=== PATIENT | male | born 1945 | race Caucasian/White ===

== ENCOUNTER → 2017-05-30 | Outpatient (CLI) | payer MEDICARE, OTHER ==
[~2017-05-30] MED LIST: AMLO10TA2 PO; ATEN25TA PO; IRBE300T11 PO; OMEP40CA2 PO; SIMV20TA PO
[2017-05-30 10:10] LABS: AUTOMATED NEUTROPHIL # 6.1 TH/MM3 (1.8-7.7); BASOPHIL # 0.1 TH/MM3 (0-0.2); BASOPHIL % 0.8 % (0.0-2.0); EOSINOPHIL # 0.1 TH/MM3 (0-0.4); EOSINOPHIL % 1.1 % (0.0-4.0); HEMATOCRIT 45.6 % (39.0-51.0); HEMOGLOBIN 15.7 GM/DL (13.0-17.0); LYMPH % 25.4 % (9.0-44.0); LYMPHOCYTE # 2.4 TH/MM3 (1.0-4.8); MEAN CELL VOLUME 88.7 FL (80.0-100.0); MEAN CORPUSCULAR HEMOGLOBIN 30.5 PG (27.0-34.0); MEAN CORPUSCULAR HGB CONC 34.4 % (32.0-36.0); MONO % 7.4 % (0.0-8.0); MONOCYTE # 0.7 TH/MM3 (0-0.9); NEUT % 65.3 % (16.0-70.0); PLATELET COUNT 248 TH/MM3 (150-450); RED BLOOD COUNT 5.14 MIL/MM3 (4.50-5.90); RED CELL DISTRIBUTION WIDTH 14.5 % (11.6-17.2); WHITE BLOOD COUNT 9.3 TH/MM3 (4.0-11.0)
[2017-05-30 10:23] LABS: PROTHROMBIN TIME - PATIENT 10.5 SEC (9.8-11.6)
[2017-05-30 10:24] LABS: BILIRUBIN, URINE NEG (NEG); BLOOD, URINE NEG (NEG); GLUCOSE,URINE NEG (NEG); KETONE, URINE NEG (NEG); MUCUS URINE FEW /lpf (OCC); NITRITE,URINE NEG (NEG); PH, URINE 5.5 (5.0-8.5); URINE COLOR YELLOW (YELLW/STRAW); URINE LEUKOCYTE ESTERASE NEG (NEG)
[2017-05-30 10:50] LABS: BICARBONATE 30.6 MEQ/L (21.0-32.0); CALCIUM 9.3 MG/DL (8.5-10.1)
--- NOTE | 2017-05-30 11:46 | RADRPT ---
EXAM DATE/TIME: 05/30/2017 11:31 [facility] COMPARISON: No previous studies available for comparison. INDICATIONS : Evaluate for pneumonia, pneumothorax and communicable diseases. Pre-op Hip surgery MEDICAL HISTORY : Hypertension. SURGICAL HISTORY : None. ENCOUNTER: Initial ACUITY: 1 day PAIN SCORE: 0/10 LOCATION: chest FINDINGS: Calcified granuloma in the left upper lobe. No significant focal pleural or parenchymal opacities. Ca rdiomediastinal contours are within normal limits. Bony thorax is intact. CONCLUSION: 1. Left upper lobe granuloma. 2. No acute cardiopulmonary disease. Roman Banks MD on May 30, 2017 at 11:43 Board Certified Radiologist. This report was verified electronically.
--- NOTE | 2017-05-30 14:03 | EKG ---
Date Performed: 05/30/2017 Time Performed: 10:01:48 PTAGE: 72 years EKG: Sinus rhythm with 1st degree A-V block. Left axis deviation Abnormal ECG NO PREVIOUS TRACING DOCTOR: Sudeep Isabel Interpretating Date/Time 05/30/2017 14:02:34
== END ==
LOC: CPRE 09:25
PROVIDERS: ATTEND Orthopaedic Surgery Orthopaedic Trauma
DX: Z01.810 Encounter for preprocedural cardiovascular examination (principal); Z01.811 Encounter for preprocedural respiratory examination; Z01.812 Encounter for preprocedural laboratory examination; M79.609 Pain in unspecified limb; R94.31 Abnormal electrocardiogram [ECG] [EKG]; Z96.60 Presence of unspecified orthopedic joint implant; Z79.01 Long term (current) use of anticoagulants
CPT/HCPCS: 36415; 71020; 80048; 81001; 85025; 85610; 85730; 93005

== ENCOUNTER 2017-06-17 09:00 | Inpatient (IN) | payer MEDICARE, OTHER ==
[~2017-06-17] VITALS: Ht 182.9 cm; Wt 123.4 kg
[2017-06-26] MEDS ORDERED: BUPIVACAINE LIPOSO PF 1.3% INJ 20 ML, BUPIVACAINE-EPI PF 0.25% INJ 20 ML in SODIUM CHLO... P-ARTICULR SCH (05:45)
[2017-06-26] MEDS ORDERED: DEXAMETHASONE SOD PHOS 20 MG/5 ML VIAL IV PUSH SCH (05:45)
[2017-06-26] MEDS ORDERED: CELECOXIB 200 MG CAP PO SCH (05:45)
[2017-06-26] MEDS ORDERED: VANCOMYCIN 1000 MG/NS 250 ML (for <70 kg) IV SCH ×2 (05:45)
[2017-06-26] MEDS ORDERED: CHLORHEXIDINE GLUCONATE 2 % 1 PACK (2 CLOTHS) TOPICAL PRN (05:45)
[2017-06-26] MEDS ORDERED: SODIUM CHLORID 0.9% 500 ML IV PRN (05:45)
[2017-06-26] MEDS ORDERED: METOPROLOL TARTRATE 25 MG TAB PO PRN (05:45)
[2017-06-26] MEDS ORDERED: LACTATED RINGER'S 1000 ML IV PRN (05:45)
[2017-06-26] MEDS ORDERED: CHLORHEXIDINE GLUCONATE 4% SOLN 120 ML BTL TOPICAL SCH (05:45)
[2017-06-26] MEDS ORDERED: POVIDONE IODINE 5% (ANTISEPSIS KIT) 4 APPLICATIONS EACH NARE PRN (05:45)
[2017-06-26] MEDS ORDERED: GENTAMICIN SULFATE 80 MG/2 ML VIAL ONE (06:17)
[2017-06-26] MEDS ORDERED: MIDAZOLAM HCL 2 MG/2 ML VIAL ONE (06:23)
[2017-06-26] MEDS ORDERED: ACETAMINOPHEN 1000 MG/100 ML 100 ML IV ONE (06:23)
[2017-06-26] MEDS ORDERED: FAMOTIDINE 20 MG/2 ML VIAL ONE (06:23)
[2017-06-26] MEDS ORDERED: ceFAZolin 2 GM PREMIX 50 ML ONE (06:32)
[2017-06-26] MEDS: SODIUM CHLORIDE 0.9% IV SCH ×3 (07:02→08:29)
[2017-06-26] MEDS: TRANEXAMIC ACID IV SCH ×3 (07:02→08:29)
[2017-06-26] MEDS ORDERED: HYDR-3583 PO (07:37)
[2017-06-26] MEDS ORDERED: ASPI1CHW4 CHEW (07:37)
--- NOTE | 2017-06-26 08:44 | PD.OP ---
cc: Jori Alcocer MD Operative Report Date of Surgery: Jun 26, 2017 Preoperative Diagnosis: Right hip osteoarthritis Postoperative Diagnosis: Procedure: Right total hip arthroplasty via anterior approach Anesthesia: Gen. Surgeon: Jori Alcocer Emergency Technician(s): NATASHA Cartwright PA-C The surgical procedure was assisted by my physician front desk assistant. My P.A. presence was necessary throughout this case for the manipulation and positioning of the surgical extremity. My P.A. was assisting me throughout the duration of this procedure. The skill set of a physician front desk assistant was medically necessary to complete this procedure. During the surgical case the surgical instruments inspector was working at the back table and the physician front desk assistant was directly assisting me. Operation and Findings: PLAN OF ACTIVITY Weight bear as tolerated. DRAINS: 7-mm SANTI drain. IMPLANTS USED DePuy Corail size [16 high offset stem with a size [56] [place] Gription cup, [ 56/36] Altrx poly liner, and a +1 standard head. DETAILS OF PROCEDURE: This patient has a long history of hip pain. Patient was found to have severe osteoarthritis. The patient had radiographic evidence of joint space narrowing with [id number] arthritis and osteophytes around the acetabulum as well as the femoral head. There was also some cystic changes. The patient failed conservative treatment with pain medications, anti-inflammatories, physical therapy, assistive devices including a cane, as well as therapeutic injection of the hip. Patient's hip arthritis was limiting his ability to ambulate and perform activities of daily living. The patient wished to proceed with surgery and informed consent was obtained. Operative site was marked. I discussed both posterior approach and anterior approach with the patient and decision was made for anterior approach. Patient was brought to OR and placed on OR table. IV sedation and general anesthesia was administered by anesthesiologist. Patient positioned on a Mary table and was given IV antibiotics. Time-out procedure was performed. The hip and thigh were prepped with alcohol followed by Hibiclens. The thigh was draped in the usual sterile fashion. Clean Air Suite was used for this procedure. The procedure began with a 5-inch incision over the anterolateral thigh. Subcutaneous tissue was dissected with Bovie. The fascia over the tensa fasciae latae was incised. Care was taken to avoid injury to the lateral femoral cutaneous nerve. The tensor muscle was retracted laterally. Sartorius was retracted medially. Retractors were now placed. The reflected head of the rectus is now elevated. A capsulotomy was performed over the anterior head capsule. Sutures were placed to help retract the capsule. At this point the femoral head and neck were identified. With soft tissue protected, oscillating saw was used to make a cut through the femoral neck, the femoral head was now removed. At this point attention was turned to preparation of the acetabulum. The labrum was excised. The acetabulum was sequentially reamed up to size [56]. A [place] cup was now placed. Fluoroscopy was used to aid in identification of appropriate version. Cup was fully impacted and found to have excellent fit. Hole eliminator was now placed. The liner was now impacted into the cup. At this point the hip was externally rotated. A hook was placed around the proximal femur. The capsule was released off the lateral and medial femur. The hip was now extended and adducted. Retractors were placed around the proximal femur to allow for exposure. A box osteotome was used to remove the lateral cortex of the femoral neck. A broach was used to help lateralize the prosthesis. Canal finder was used to create a path down the canal. Next, the canal was sequentially broached up to size [16]. This was found to be an excellent fit. Calcar planer was placed. A standard head was placed, and the hip was reduced. The hip was found to have excellent stability with good range of motion. The leg lengths were measured under fluoroscopy and found to be equal compared to preoperatively. Trial broach was removed. The Corail stem was opened. Stem was fully impacted into the proximal femur in appropriate version. The femoral head was placed. The hip was again reduced. Fluoroscopy confirmed excellent alignment of prosthesis. The wound was thoroughly irrigated and capsule was closed with #1 Vicryl. The fascia over the tensor fasciae muscle was closed with #1 Vicryl, subcutaneous tissue was closed with 3-0 Vicryl and the skin was closed with vivian and Dermabond skin closure. The capsule layers, muscle, and subcutaneous tissue were injected with a mixture of saline and bupivicaine. Dressings were applied. The patient was transferred to Recovery Room in stable condition. Jori Alcocer MD Jun 26, 2017 08:44
[2017-06-26] MEDS ORDERED: ONDANSETRON HCL 4 MG/2 ML VIAL IVP PRN (08:45)
[2017-06-26] MEDS ORDERED: ACETAMINOPHEN/HYDROcodone 325 MG/5 MG TAB PO PRN (08:45)
[2017-06-26] MEDS ORDERED: ACETAMINOPHEN/HYDROcodone 325 MG/7.5 MG TAB PO PRN (08:45)
[2017-06-26] MEDS ORDERED: NALOXONE HCL 0.4 MG/ML AMP IV PUSH PRN (08:45)
[2017-06-26] MEDS ORDERED: Post-op Orders (for Pharmacy) XX ONE (08:45)
[2017-06-26] MEDS ORDERED: ACETAMINOPHEN/HYDROcodone 325 MG/10 MG TAB PO PRN (08:45)
[2017-06-26] MEDS ORDERED: DO NOT ADM ANY ANTICOAGULANT DRUGS PRN (09:07)
--- NOTE | 2017-06-26 09:43 | HHI.FF ---
Face to Face Verification Diagnosis: (1) Status post right hip replacement Physical Therapy Gait training, Safety evaluation Hip: Total hip, Protocol: Right, Progress to weight bearing Right LE Weight Bearing: WB as tolerated Nursing Additional Instructions Maintain dressing unless soiled or coming loose until 07/02/17, then remove carefully leaving Dermabond tape intact over incision. Then dress with primapore only with changes every other day. I have seen patient Frantz Gotti on 06/26/17. My clinical findings support the need for the requested home health care services because: Limited ability to care for self I certify that my clinical findings support that this patient is homebound because: Post-op weakness Colt Chung Jr. Jun 26, 2017 09:43
[2017-06-26] MEDS: LACTATED RINGER'S 1000 ML INJ 1,000 ML IV SCH (09:45)
[2017-06-26] MEDS ORDERED: *morphine SULFATE 8 MG/ML PERIprocedure ONLY ONE ×3 (09:48→10:49)
--- NOTE | 2017-06-26 10:12 | RADRPT ---
EXAM DATE/TIME: 06/26/2017 09:23 [facility] COMPARISON: No previous studies available for comparison. INDICATIONS : Post hardware placement MEDICAL HISTORY : None. SURGICAL HISTORY : None. ENCOUNTER: Initial ACUITY: 1 day PAIN SCORE: 0/10 LOCATION: Right Hip FINDINGS: Right hip arthroplasty in place. The arthroplasty components are in anatomic alignment. No significan t acute bony fracture. Immediate postoperative soft tissue changes. CONCLUSION: 1. Right hip arthroplasty in anatomic alignment without acute fracture. Roman Banks MD on June 26, 2017 at 10:02 Board Certified Radiologist. This report was verified electronically.
[2017-06-26] MEDS ORDERED: KETOROLAC TROMETHAMINE 30 MG/ML (IVP) VIAL IV PUSH SCH (11:00)
[2017-06-26] MEDS ORDERED: TRANEXAMIC ACID INJ 1,000 MG in SODIUM CHLORIDE 0.9% INJ 100 ML IV ONE (11:00)
[2017-06-26] MEDS: ASPIRIN 81 MG CHEW TAB CHEW SCH ×2 (11:40→20:33)
[2017-06-26 12:00] VITALS: BP 107/67; PULSE 62; RESP 18; TEMP 96.2; O2SAT 95
[2017-06-26] MEDS ORDERED: PHENYLEPH/NS 1000 MCG/10 ML SYR IV ONE (12:00)
[2017-06-26] MEDS ORDERED: ONDANSETRON HCL 4 MG/2 ML VIAL IV ONE (12:00)
[2017-06-26] MEDS ORDERED: ePHEDrine/NS 25 MG/5 ML SYRINGE IV ONE (12:00)
[2017-06-26] MEDS ORDERED: LIDOCAINE HCL 1% PF 5 ML SYRINGE OTHER ONE (12:00)
[2017-06-26] MEDS ORDERED: GLYCOPYRROLATE 1 MG/5 ML SYRINGE IV PUSH ONE (12:00)
[2017-06-26] MEDS ORDERED: ROCURONIUM INJ 50 MG/5 ML SYRINGE IV PUSH ONE (12:00)
[2017-06-26] MEDS ORDERED: NEOSTIGMINE 5 MG/5 ML SYRINGE IV PUSH ONE (12:00)
[2017-06-26] MEDS ORDERED: LACTATED RINGER'S 1000 ML INJ 1,000 ML IV ONE (12:00)
[2017-06-26] MEDS ORDERED: PROPOFOL 200 MG/20 ML AMP IV ONE (12:00)
[2017-06-26] MEDS: ceFAZolin 2 GM PREMIX 50 ML IV SCH ×2 (14:03→19:16)
[2017-06-26 16:00] VITALS: BP 104/67; PULSE 55; RESP 18; TEMP 96.4; O2SAT 96
--- NOTE | 2017-06-26 16:12 | RADRPT ---
EXAM DATE/TIME: 06/26/2017 07:15 [facility] COMPARISON: No previous studies available for comparison. INDICATIONS : Right total hip arthroplasty. MEDICAL HISTORY : None. SURGICAL HISTORY : None. ENCOUNTER: Initial ACUITY: 1 day PAIN SCORE: Non-responsive. LOCATION: Right hip FINDINGS: 3 magnified C-arm spot views are centered over the hip joint and labeled right. A total prosthesis is observed. This is in good position. No gross fracture on this style acquisition. CONCLUSION: Limited images as detailed above. Jamal Fall Jr., MD on June 26, 2017 at 16:10 Board Certified Radiologist. This report was verified electronically.
[2017-06-26] MEDS: ACETAMINOPHEN 1000 MG/100 ML 100 ML IV SCH (17:04)
[2017-06-26] MEDS: VANCOMYCIN INJ 1,000 MG in SODIUM CHLOR 0.9% 250 ML INJ 250 ML IV SCH (17:56)
[2017-06-26 20:10] VITALS: BP 138/76; PULSE 59; RESP 16; TEMP 96.2; O2SAT 97
[2017-06-26] MEDS: CELECOXIB 200 MG CAP PO SCH (20:32)
[2017-06-26] MEDS: MORPHINE SULFATE 4 MG/ML INJ IV PUSH PRN (20:34)
[2017-06-27] MEDS: LACTATED RINGER'S 1000 ML INJ 1,000 ML IV SCH ×2 (01:30→09:39)
[2017-06-27] MEDS: ceFAZolin 2 GM PREMIX 50 ML IV SCH (01:30)
[2017-06-27] MEDS: MORPHINE SULFATE 4 MG/ML INJ IV PUSH PRN (01:35)
[2017-06-27 04:30] LABS: HEMATOCRIT 39.6 % (39.0-51.0); HEMOGLOBIN 13.6 GM/DL (13.0-17.0)
[2017-06-27] MEDS: VANCOMYCIN INJ 1,000 MG in SODIUM CHLOR 0.9% 250 ML INJ 250 ML IV SCH (05:45)
[2017-06-27] MEDS: ACETAMINOPHEN 1000 MG/100 ML 100 ML IV SCH (05:45)
--- NOTE | 2017-06-27 06:49 | PD.ORT.PN ---
Subjective Subjective Remarks Resting comfortably. Had difficulty urinating and Duckworth was inserted last night Objective Vitals Vital Signs Date Time Temp Pulse Resp B/P (MAP) Pulse Ox O2 Delivery O2 Flow Rate FiO2 06/26/17 20:10 96.2 59 16 138/76 (96) 97 06/26/17 19:31 Room Air 06/26/17 18:46 Room Air 06/26/17 16:00 96.4 55 18 104/67 (79) 96 06/26/17 12:00 96.2 62 18 107/67 (80) 95 06/26/17 11:15 98.4 58 17 115/60 (78) 95 Nasal Cannula 3 06/26/17 10:45 59 17 116/65 (82) 95 Nasal Cannula 3 06/26/17 10:30 67 17 115/60 (78) 96 Nasal Cannula 3 06/26/17 10:15 55 16 110/57 (74) 96 Nasal Cannula 3 06/26/17 10:00 58 16 104/55 (71) 96 Nasal Cannula 3 06/26/17 09:45 59 16 110/55 (73) 93 Nasal Cannula 4 06/26/17 09:30 61 16 109/59 (76) 93 Nasal Cannula 4 06/26/17 09:15 64 15 101/56 (71) 94 Nasal Cannula 4 06/26/17 09:11 98.5 71 15 107/58 (74) 91 Room Air I/O 06/26/17 06/26/17 06/26/17 06/27/17 06/27/17 06/27/17 07:00 15:00 23:00 07:00 15:00 23:00 Intake Total 3560 ml Output Total 3785 ml 1350 ml Balance -225 ml -1350 ml Intake Oral 450 ml IV Total 3110 ml Output Urine Total 85 ml 1350 ml Estimated Blood Loss 700 ml Other 3000 ml Bladder Scan Volume Amount 533 ml # Voids 1 # Bowel Movements 0 Result Diagram: 06/27/17 0340 Imaging Last 24 hours Impressions Hip and Pelvis X-Ray 06/26/17 0839 Signed Impressions: Service Date/Time: June 09:23 - CONCLUSION: 1. Right hip arthroplasty in anatomic alignment without acute fracture. Roman Banks MD Objective Remarks Right lower extremity: Clean dry dressings intact. Mild swelling. Distally intact sensation good capillary refills. Active dorsal flexion plantar flexion of foot. Mild tenderness with range of motion of hip Assessment & Plan Assessment and Plan Right total hip arthroplasty anterior approach POD 1 Weightbearing as tolerated with physical therapy twice a day Discontinue Duckworth this morning Plan for discharge to home this afternoon if able to urinate, pain is controlled and progressed well with physical therapy No dressing changes needed Incentive spirometry Follow-up with Dr. Alcocer or PA in 2 weeks Colt Chung Jr. Jun 27, 2017 06:49
[2017-06-27 08:00] VITALS: BP 132/68; PULSE 58; RESP 16; TEMP 96.7; O2SAT 96
[2017-06-27] MEDS: CELECOXIB 200 MG CAP PO SCH (08:52)
[2017-06-27] MEDS: ASPIRIN 81 MG CHEW TAB CHEW SCH (08:52)
[2017-06-27] MEDS ORDERED: ATENOLOL 25 MG TAB PO SCH (09:00)
[2017-06-27] MEDS ORDERED: PANTOPRAZOLE SOD 40 MG DELAYED RELEASE TAB PO SCH (09:00)
[2017-06-27] MEDS ORDERED: PRAVASTATIN SOD 40 MG TAB PO SCH (09:00)
[2017-06-27] MEDS ORDERED: LOSARTAN 50 MG TAB PO SCH (09:00)
[2017-06-27 12:00] VITALS: BP 144/68; PULSE 53; RESP 15; TEMP 97.1; O2SAT 96
[2017-06-27] MEDS ORDERED: DOCUSATE SODIUM 100 MG CAP PO SCH (21:00)
== END 2017-06-27 11:58 | disposition home health service (06) | DRG 470 ==
LOC: HSDI 06-26 05:13 → N06B 06-26 12:02
PROVIDERS: ADMIT Orthopaedic Surgery Orthopaedic Trauma; ATTEND Orthopaedic Surgery Orthopaedic Trauma
PROC: 0T9B70Z Drainage of Bladder with Drainage Device, Via Natural or Artificial Opening (ICD-10-PCS; 2017-06-26)
PROC: 0SR902Z Replacement of Right Hip Joint with Metal on Polyethylene Synthetic Substitute, Open Approach (ICD-10-PCS; principal; 2017-06-26 06:36)
DX: M16.11 Unilateral primary osteoarthritis, right hip (principal); I10 Essential (primary) hypertension; K21.9 Gastro-esophageal reflux disease without esophagitis; M35.3 Polymyalgia rheumatica; M25.751 Osteophyte, right hip; M79.609 Pain in unspecified limb; Z88.0 Allergy status to penicillin; Z88.1 Allergy status to other antibiotic agents; Z88.2 Allergy status to sulfonamides
CPT/HCPCS: 73501; 73502; 76000; 85014; 85018; 86850; 86900; 86901; C1776; C9290; J0131; J0690; J1100; J1580; J2250; J2270; J2370; J2405; J2710; J3010; J3370; J7050; J7120